=== PATIENT | male | born 1950 | race Caucasian/White ===

== ENCOUNTER → 2016-09-25 | Outpatient (CLI) | payer BC ==
[2016-09-25 13:10] LABS: BASO % 0.2 % (0.0-1.0); EOS # 0.1 10*3/uL (0.0-0.4); EOS % 2.2 % (1.0-4.0); HEMATOCRIT 35.1 % (42.0-52.0); LYMPH # 0.6 10*3/uL (1.3-4.4); LYMPH % 9.5 % (27.0-41.0); MEAN CELL VOLUME 96.4 fl (80.0-94.0); MEAN CORPUSCULAR HGB 30.2 pg (27.0-31.0); MEAN CORPUSCULAR HGB CONC 31.3 g/dl (33.0-37.0); MEAN PLATELET VOLUME 8.9 fl (9.6-12.3); MONO # 0.5 10*3/uL (0.1-1.0); MONO % 8.3 % (3.0-9.0); NEUT # 4.8 10*3/uL (2.3-7.9); NEUT % 79.1 % (47.0-73.0); PLATELET COUNT AUTOMATED 140 10*3/uL (130-400); RED BLOOD COUNT 3.64 10*6/uL (4.50-5.90); RED CELL DISTRI WIDTH 13.8 % (0-14.5)
[2016-09-25 13:34] LABS: MAGNESIUM 2.2 mg/dL (1.5-2.1); PHOSPHOROUS 2.6 mg/dL (2.5-4.9); POTASSIUM 4.6 mmol/L (3.5-5.1)
== END | disposition home or self-care (01) ==
LOC: LAB 12:52
PROVIDERS: Family Medicine
DX: I12.9 Hypertensive chronic kidney disease with stage 1 through stage 4 chronic kidney disease, or unspecified chronic kidney disease (principal); D59.0 Drug-induced autoimmune hemolytic anemia; N18.9 Chronic kidney disease, unspecified; E83.40 Disorders of magnesium metabolism, unspecified; E78.2 Mixed hyperlipidemia; T86.10 Unspecified complication of kidney transplant; Z79.899 Other long term (current) drug therapy; Z94.0 Kidney transplant status

== ENCOUNTER → 2016-11-01 | Outpatient (CLI) | payer BC | END | disposition home or self-care (01) | LOC: LAB 09:29 | PROVIDERS: Internal Medicine Nephrology | DX: E87.5 Hyperkalemia (principal); Z94.0 Kidney transplant status ==

== ENCOUNTER → 2016-11-11 | Outpatient (CLI) | payer BC ==
[2016-11-12 09:08] LABS: PSA % FREE 31.3 % (.)
== END | disposition home or self-care (01) ==
LOC: RAD 11-07 11:30 → LAB 10:53 → RAD 11:00
PROVIDERS: Internal Medicine
DX: Z13.820 Encounter for screening for osteoporosis (principal); Z12.5 Encounter for screening for malignant neoplasm of prostate; C43.9 Malignant melanoma of skin, unspecified; N18.9 Chronic kidney disease, unspecified; Z94.0 Kidney transplant status; Z79.52 Long term (current) use of systemic steroids

== ENCOUNTER → 2017-02-23 | Outpatient (CLI) | payer BC ==
[2017-02-23 08:19] LABS: CREATININE 2.77 mg/dL (0.70-1.30)
== END | disposition home or self-care (01) ==
LOC: LAB 07:52
PROVIDERS: Internal Medicine Nephrology
DX: T86.10 Unspecified complication of kidney transplant (principal); Z94.0 Kidney transplant status

== ENCOUNTER → 2017-02-27 | Outpatient (CLI) | payer BC ==
[2017-02-27 07:56] LABS: BASO % 0.2 % (0.0-1.0); EOS # 0.1 10*3/uL (0.0-0.4); HEMATOCRIT 34.9 % (42.0-52.0); HEMOGLOBIN 10.9 g/dl (14.0-18.0); LYMPH # 0.4 10*3/uL (1.3-4.4); LYMPH % 9.1 % (27.0-41.0); MEAN CELL VOLUME 95.6 fl (80.0-94.0); MEAN CORPUSCULAR HGB 29.9 pg (27.0-31.0); MEAN CORPUSCULAR HGB CONC 31.2 g/dl (33.0-37.0); MEAN PLATELET VOLUME 8.9 fl (9.6-12.3); MONO # 0.3 10*3/uL (0.1-1.0); MONO % 7.1 % (3.0-9.0); NEUT # 3.7 10*3/uL (2.3-7.9); NEUT % 78.7 % (47.0-73.0); PLATELET COUNT AUTOMATED 141 10*3/uL (130-400); RED BLOOD COUNT 3.65 10*6/uL (4.50-5.90); RED CELL DISTRI WIDTH 13.5 % (0-14.5); WHITE BLOOD COUNT 4.6 10*3/uL (4.8-10.8)
[2017-02-27 08:36] LABS: POTASSIUM 5.7 mmol/L (3.5-5.1)
[2017-02-27 08:38] LABS: CREATININE 2.56 mg/dL (0.70-1.30)
== END | disposition home or self-care (01) ==
LOC: LAB 07:19
PROVIDERS: Surgery
DX: I12.9 Hypertensive chronic kidney disease with stage 1 through stage 4 chronic kidney disease, or unspecified chronic kidney disease (principal); E10.22 Type 1 diabetes mellitus with diabetic chronic kidney disease; N18.9 Chronic kidney disease, unspecified; D50.9 Iron deficiency anemia, unspecified; B25.9 Cytomegaloviral disease, unspecified; E83.40 Disorders of magnesium metabolism, unspecified; E78.2 Mixed hyperlipidemia; T86.10 Unspecified complication of kidney transplant; Z79.899 Other long term (current) drug therapy; Z94.0 Kidney transplant status

== ENCOUNTER → 2017-03-04 | Outpatient (CLI) | payer BC ==
[2017-03-04 13:28] LABS: CREATININE 2.74 mg/dL (0.70-1.30)
== END | disposition home or self-care (01) ==
LOC: LAB 12:34
PROVIDERS: Surgery
DX: R79.89 Other specified abnormal findings of blood chemistry (principal); Z94.0 Kidney transplant status

== ENCOUNTER → 2017-05-21 | Outpatient (CLI) | payer BC ==
[2017-05-21 09:08] LABS: BASO % 0.5 % (0.0-1.0); EOS # 0.1 10*3/uL (0.0-0.4); EOS % 3.2 % (1.0-4.0); HEMATOCRIT 35.3 % (42.0-52.0); LYMPH # 0.5 10*3/uL (1.3-4.4); LYMPH % 11.9 % (27.0-41.0); MEAN CELL VOLUME 97.5 fl (80.0-94.0); MEAN CORPUSCULAR HGB 30.4 pg (27.0-31.0); MEAN CORPUSCULAR HGB CONC 31.2 g/dl (33.0-37.0); MEAN PLATELET VOLUME 8.9 fl (9.6-12.3); MONO # 0.5 10*3/uL (0.1-1.0); MONO % 11.6 % (3.0-9.0); NEUT # 2.9 10*3/uL (2.3-7.9); NEUT % 70.8 % (47.0-73.0); PLATELET COUNT AUTOMATED 124 10*3/uL (130-400); RED BLOOD COUNT 3.62 10*6/uL (4.50-5.90); RED CELL DISTRI WIDTH 13.3 % (0-14.5)
[2017-05-21 09:39] LABS: ALBUMIN 3.7 gm/dl (3.1-4.5); CREATININE 2.42 mg/dL (0.70-1.30); POTASSIUM 5.1 mmol/L (3.5-5.1); TOTAL PROTEIN 6.7 gm/dL (6.4-8.2); URIC ACID 7.9 mg/dL (3.5-7.2)
[2017-05-21 09:45] LABS: THYROID STIM HORMONE (HS) 7.93 uIU/ml (0.358-4.75)
== END | disposition home or self-care (01) ==
LOC: LAB 08:38
PROVIDERS: Surgery
DX: I12.9 Hypertensive chronic kidney disease with stage 1 through stage 4 chronic kidney disease, or unspecified chronic kidney disease (principal); N18.4 Chronic kidney disease, stage 4 (severe); E11.22 Type 2 diabetes mellitus with diabetic chronic kidney disease; D59.0 Drug-induced autoimmune hemolytic anemia; B25.9 Cytomegaloviral disease, unspecified; E83.40 Disorders of magnesium metabolism, unspecified; E78.2 Mixed hyperlipidemia; T86.10 Unspecified complication of kidney transplant; Z79.899 Other long term (current) drug therapy; Z94.0 Kidney transplant status

== ENCOUNTER → 2017-07-28 | Outpatient (CLI) | payer BC ==
[2017-07-28 08:41] LABS: BASO % 0.3 % (0.0-1.0); EOS # 0.1 10*3/uL (0.0-0.4); EOS % 1.7 % (1.0-4.0); HEMATOCRIT 36.3 % (42.0-52.0); HEMOGLOBIN 11.9 g/dl (14.0-18.0); LYMPH # 0.5 10*3/uL (1.3-4.4); LYMPH % 8.1 % (27.0-41.0); MEAN CELL VOLUME 92.8 fl (80.0-94.0); MEAN CORPUSCULAR HGB 30.4 pg (27.0-31.0); MEAN CORPUSCULAR HGB CONC 32.8 g/dl (33.0-37.0); MEAN PLATELET VOLUME 8.7 fl (9.6-12.3); MONO # 0.4 10*3/uL (0.1-1.0); MONO % 6.9 % (3.0-9.0); NEUT # 4.8 10*3/uL (2.3-7.9); PLATELET COUNT AUTOMATED 184 10*3/uL (130-400); RED BLOOD COUNT 3.91 10*6/uL (4.50-5.90); RED CELL DISTRI WIDTH 13.2 % (0-14.5); WHITE BLOOD COUNT 5.8 10*3/uL (4.8-10.8)
[2017-07-28 09:16] LABS: ALBUMIN 3.8 gm/dl (3.1-4.5); CREATININE 2.95 mg/dL (0.70-1.30); POTASSIUM 4.9 mmol/L (3.5-5.1); TOTAL PROTEIN 6.7 gm/dL (6.4-8.2)
== END | disposition home or self-care (01) ==
LOC: LAB 08:05
PROVIDERS: Internal Medicine
DX: R63.0 Anorexia (principal); R10.12 Left upper quadrant pain; Z96.0 Presence of urogenital implants

== ENCOUNTER → 2017-12-09 | Outpatient (CLI) | payer MEDICARE ==
[2017-12-09 14:39] LABS: BASO % 0.5 % (0.0-1.0); EOS # 0.2 10*3/uL (0.0-0.4); EOS % 3.7 % (1.0-4.0); HEMATOCRIT 36.4 % (42.0-52.0); HEMOGLOBIN 11.3 g/dl (14.0-18.0); LYMPH # 0.5 10*3/uL (1.3-4.4); LYMPH % 9.6 % (27.0-41.0); MEAN CELL VOLUME 98.9 fl (80.0-94.0); MEAN CORPUSCULAR HGB 30.7 pg (27.0-31.0); MEAN PLATELET VOLUME 8.6 fl (9.6-12.3); MONO # 0.5 10*3/uL (0.1-1.0); MONO % 8.2 % (3.0-9.0); NEUT # 4.3 10*3/uL (2.3-7.9); NEUT % 76.4 % (47.0-73.0); PLATELET COUNT AUTOMATED 136 10*3/uL (130-400); RED BLOOD COUNT 3.68 10*6/uL (4.50-5.90); RED CELL DISTRI WIDTH 13.5 % (0-14.5); WHITE BLOOD COUNT 5.6 10*3/uL (4.8-10.8)
[2017-12-09 15:05] LABS: ALBUMIN 3.9 gm/dl (3.1-4.5); CREATININE 3.05 mg/dL (0.70-1.30); PHOSPHOROUS 4.4 mg/dL (2.5-4.9); POTASSIUM 5.6 mmol/L (3.5-5.1); TOTAL PROTEIN 6.7 gm/dL (6.4-8.2)
== END | disposition home or self-care (01) ==
LOC: LAB 14:12
PROVIDERS: Internal Medicine Nephrology
DX: D64.9 Anemia, unspecified (principal); E83.42 Hypomagnesemia

== ENCOUNTER → 2017-12-17 | Outpatient (CLI) | payer MEDICARE ==
[2017-12-17 10:25] LABS: BASO % 0.4 % (0.0-1.0); EOS # 0.2 10*3/uL (0.0-0.4); EOS % 3.2 % (1.0-4.0); HEMATOCRIT 35.7 % (42.0-52.0); HEMOGLOBIN 11.1 g/dl (14.0-18.0); LYMPH # 0.6 10*3/uL (1.3-4.4); LYMPH % 10.8 % (27.0-41.0); MEAN CELL VOLUME 97.5 fl (80.0-94.0); MEAN CORPUSCULAR HGB 30.3 pg (27.0-31.0); MEAN CORPUSCULAR HGB CONC 31.1 g/dl (33.0-37.0); MEAN PLATELET VOLUME 8.7 fl (9.6-12.3); MONO # 0.5 10*3/uL (0.1-1.0); MONO % 9.2 % (3.0-9.0); NEUT # 4.3 10*3/uL (2.3-7.9); NEUT % 75.3 % (47.0-73.0); PLATELET COUNT AUTOMATED 131 10*3/uL (130-400); RED BLOOD COUNT 3.66 10*6/uL (4.50-5.90); RED CELL DISTRI WIDTH 13.4 % (0-14.5); WHITE BLOOD COUNT 5.7 10*3/uL (4.8-10.8)
[2017-12-17 10:59] LABS: ALBUMIN 3.9 gm/dl (3.1-4.5); CREATININE 2.51 mg/dL (0.70-1.30); PHOSPHOROUS 3.4 mg/dL (2.5-4.9); URIC ACID 7.8 mg/dL (3.5-7.2)
[2017-12-17 11:01] LABS: TOTAL PROTEIN 6.9 gm/dL (6.4-8.2)
[2017-12-17 13:10] LABS: POTASSIUM 6.1 mmol/L (3.5-5.1)
== END | disposition home or self-care (01) ==
LOC: LAB 09:51
PROVIDERS: Internal Medicine Nephrology
DX: D64.9 Anemia, unspecified (principal); E83.42 Hypomagnesemia; Z94.0 Kidney transplant status

== ENCOUNTER → 2017-12-21 | Outpatient (CLI) | payer MEDICARE ==
[2017-12-21 09:53] LABS: BASO % 0.5 % (0.0-1.0); EOS # 0.2 10*3/uL (0.0-0.4); EOS % 2.9 % (1.0-4.0); HEMATOCRIT 36.9 % (42.0-52.0); HEMOGLOBIN 11.3 g/dl (14.0-18.0); LYMPH # 0.6 10*3/uL (1.3-4.4); LYMPH % 10.8 % (27.0-41.0); MEAN CELL VOLUME 98.7 fl (80.0-94.0); MEAN CORPUSCULAR HGB 30.2 pg (27.0-31.0); MEAN CORPUSCULAR HGB CONC 30.6 g/dl (33.0-37.0); MEAN PLATELET VOLUME 9.3 fl (9.6-12.3); MONO # 0.6 10*3/uL (0.1-1.0); MONO % 9.7 % (3.0-9.0); NEUT # 4.4 10*3/uL (2.3-7.9); NEUT % 74.7 % (47.0-73.0); PLATELET COUNT AUTOMATED 143 10*3/uL (130-400); RED BLOOD COUNT 3.74 10*6/uL (4.50-5.90); RED CELL DISTRI WIDTH 13.7 % (0-14.5); WHITE BLOOD COUNT 5.9 10*3/uL (4.8-10.8)
[2017-12-21 10:21] LABS: CREATININE 2.51 mg/dL (0.70-1.30); PHOSPHOROUS 3.7 mg/dL (2.5-4.9); POTASSIUM 5.2 mmol/L (3.5-5.1); TOTAL PROTEIN 6.7 gm/dL (6.4-8.2); URIC ACID 9.1 mg/dL (3.5-7.2)
== END | disposition home or self-care (01) ==
LOC: LAB 08:26
PROVIDERS: Internal Medicine Nephrology
DX: D64.9 Anemia, unspecified (principal); E83.42 Hypomagnesemia; Z94.0 Kidney transplant status

== ENCOUNTER 2018-01-06 10:42 | Emergency (ER) | payer MEDICARE ==
[~2018-01-06] VITALS: Ht 177.8 cm; Wt 81.2 kg
== END 2018-01-06 11:27 | disposition home or self-care (01) ==
LOC: ED 10:42
DX: S05.02XA Injury of conjunctiva and corneal abrasion without foreign body, left eye, initial encounter (principal); Z94.0 Kidney transplant status; Z88.1 Allergy status to other antibiotic agents; X58.XXXA Exposure to other specified factors, initial encounter; Y93.89 Activity, other specified; Y92.69 Other specified industrial and construction area as the place of occurrence of the external cause; Y99.8 Other external cause status

== ENCOUNTER → 2018-04-16 | Outpatient (CLI) | payer MEDICARE ==
--- NOTE | ~2018-04-16 | EKG ---
[place], [place] ELECTROCARDIOGRAM REPORT NAME: KURTIS FIGUEROA UNIT #: [id number] ROOM: DOCTOR: JAROD DRAFT REPORT BIRTHDATE: [birth year] [facility] Test Date: 2018-04-16 Test Time: 14:39:32 Pat Name: KURTIS FIGUEROA Department: Room: Gender: Online Retailer: Rachel Mendoza : 1950 Requested By: JARRET FOLEY Order Number: [id number] Reading MD: Delisa Uriostegui MD Measurements Intervals [place] Rate: 79 P: 14 VT: 184 QRS: 8 QRSD: 84 T: 34 QT: 354 QTc: 406 Interpretive Statements Sinus rhythm LVH by voltage No previous ECG available for comparison Electronically Signed On 04-18-2018 15:24:37 PST by Delisa Uriostegui MD CM:EKGRPT:ELECTROCARDIOGRAM REPORT [id number] JARRET OLIVERA DRAFT REPORT JARRET FOLEY
[2018-04-16 15:02] LABS: BASO % 0.5 % (0.0-1.0); EOS # 0.3 10*3/uL (0.0-0.4); EOS % 4.8 % (1.0-4.0); HEMATOCRIT 38.6 % (42.0-52.0); HEMOGLOBIN 12.2 g/dl (14.0-18.0); LYMPH # 0.7 10*3/uL (1.3-4.4); LYMPH % 12.7 % (27.0-41.0); MEAN CELL VOLUME 97.2 fl (80.0-94.0); MEAN CORPUSCULAR HGB 30.7 pg (27.0-31.0); MEAN CORPUSCULAR HGB CONC 31.6 g/dl (33.0-37.0); MONO # 0.6 10*3/uL (0.1-1.0); MONO % 10.6 % (3.0-9.0); NEUT # 3.9 10*3/uL (2.3-7.9); NEUT % 69.8 % (47.0-73.0); PLATELET COUNT AUTOMATED 168 10*3/uL (130-400); RED BLOOD COUNT 3.97 10*6/uL (4.50-5.90); RED CELL DISTRI WIDTH 13.5 % (0-14.5); WHITE BLOOD COUNT 5.6 10*3/uL (4.8-10.8)
[2018-04-16 15:31] LABS: ALBUMIN 3.9 gm/dl (3.1-4.5); CREATININE 2.48 mg/dL (0.70-1.30); POTASSIUM 5.5 mmol/L (3.5-5.1); TOTAL PROTEIN 7.6 gm/dL (6.4-8.2)
== END | disposition home or self-care (01) ==
LOC: LAB 13:55
PROVIDERS: Physician Assistant; Urology
DX: Z01.818 Encounter for other preprocedural examination (principal); Z12.5 Encounter for screening for malignant neoplasm of prostate; E03.9 Hypothyroidism, unspecified; E11.9 Type 2 diabetes mellitus without complications; E78.2 Mixed hyperlipidemia; K21.9 Gastro-esophageal reflux disease without esophagitis; I10 Essential (primary) hypertension; N13.30 Unspecified hydronephrosis; T86.19 Other complication of kidney transplant

== ENCOUNTER → 2018-06-17 | Outpatient (CLI) | payer MEDICARE ==
[2018-06-17 15:12] LABS: CREATININE 3.16 mg/dL (0.70-1.30)
== END | disposition home or self-care (01) ==
PROVIDERS: Internal Medicine Nephrology
DX: E87.5 Hyperkalemia (principal)

== ENCOUNTER → 2018-12-02 | Outpatient (CLI) | payer MEDICARE ==
[2018-12-02 09:48] LABS: CREATININE 2.59 mg/dL (0.70-1.30); POTASSIUM 5.7 mmol/L (3.5-5.1)
== END | disposition home or self-care (01) ==
LOC: LAB 09:01
PROVIDERS: Internal Medicine Nephrology
DX: T86.10 Unspecified complication of kidney transplant (principal); E87.5 Hyperkalemia; D89.9 Disorder involving the immune mechanism, unspecified; Z94.0 Kidney transplant status

== ENCOUNTER → 2019-01-28 | Outpatient (CLI) | payer MEDICARE ==
[2019-01-28 15:25] LABS: CREATININE 2.99 mg/dL (0.70-1.30); POTASSIUM 5.8 mmol/L (3.5-5.1)
== END | disposition home or self-care (01) ==
LOC: LAB 14:24
PROVIDERS: Internal Medicine Nephrology
DX: N18.4 Chronic kidney disease, stage 4 (severe) (principal); E87.5 Hyperkalemia; E34.9 Endocrine disorder, unspecified; T86.10 Unspecified complication of kidney transplant; Z79.899 Other long term (current) drug therapy; Z94.0 Kidney transplant status

== ENCOUNTER → 2019-02-15 | Outpatient (CLI) | payer MEDICARE ==
[2019-02-15 15:20] LABS: CREATININE 2.93 mg/dL (0.70-1.30); POTASSIUM 4.8 mmol/L (3.5-5.1)
== END | disposition home or self-care (01) ==
LOC: LAB 14:23
PROVIDERS: Internal Medicine Nephrology
DX: E87.5 Hyperkalemia (principal); T86.10 Unspecified complication of kidney transplant; Z79.899 Other long term (current) drug therapy; Z94.0 Kidney transplant status

== ENCOUNTER → 2019-04-11 | Outpatient (CLI) | payer MEDICARE ==
[2019-04-11 09:12] LABS: BASO % 0.5 % (0.0-1.0); EOS # 0.3 10*3/uL (0.0-0.4); EOS % 8.6 % (1.0-4.0); HEMATOCRIT 31.7 % (42.0-52.0); LYMPH # 0.5 10*3/uL (1.3-4.4); LYMPH % 12.4 % (27.0-41.0); MEAN CORPUSCULAR HGB 29.3 pg (27.0-31.0); MEAN CORPUSCULAR HGB CONC 31.5 g/dl (33.0-37.0); MEAN PLATELET VOLUME 9.2 fl (9.6-12.3); MONO # 0.4 10*3/uL (0.1-1.0); MONO % 9.7 % (3.0-9.0); NEUT # 2.5 10*3/uL (2.3-7.9); NEUT % 67.7 % (47.0-73.0); PLATELET COUNT AUTOMATED 151 10*3/uL (130-400); RED BLOOD COUNT 3.41 10*6/uL (4.50-5.90); RED CELL DISTRI WIDTH 13.9 % (0-14.5); WHITE BLOOD COUNT 3.7 10*3/uL (4.8-10.8)
[2019-04-11 09:25] LABS: CREATININE 2.9 mg/dL (0.70-1.30); POTASSIUM 4.4 mmol/L (3.5-5.1)
== END | disposition home or self-care (01) ==
LOC: LAB 08:22
PROVIDERS: Urology
DX: N13.30 Unspecified hydronephrosis (principal)

== ENCOUNTER → 2019-06-21 | Outpatient (CLI) | payer MEDICARE ==
[2019-06-21 11:21] LABS: ACT PARTIAL THROMBO TIME 25.9 SECONDS (20.0-32.1)
[2019-06-21 11:22] LABS: HEMATOCRIT 30.2 % (42.0-52.0); HEMOGLOBIN 9.4 g/dl (14.0-18.0); MEAN CELL VOLUME 94.7 fl (80.0-94.0); MEAN CORPUSCULAR HGB 29.5 pg (27.0-31.0); MEAN CORPUSCULAR HGB CONC 31.1 g/dl (33.0-37.0); MEAN PLATELET VOLUME 8.7 fl (9.6-12.3); PLATELET COUNT AUTOMATED 172 10*3/uL (130-400); RED BLOOD COUNT 3.19 10*6/uL (4.50-5.90); RED CELL DISTRI WIDTH 14.6 % (0-14.5); WHITE BLOOD COUNT 4.6 10*3/uL (4.8-10.8)
[2019-06-21 11:42] LABS: ALBUMIN 3.1 gm/dl (3.1-4.5); CREATININE 4.09 mg/dL (0.70-1.30); PHOSPHOROUS 4.8 mg/dL (2.5-4.9); POTASSIUM 5.5 mmol/L (3.5-5.1); TOTAL PROTEIN 5.8 gm/dL (6.4-8.2)
[2019-06-21 11:47] LABS: OVALOCYTES FEW; PLATELET SUFFICIENCY NORMAL (NORMAL); TOTAL CELLS COUNTED 100 #CELLS
== END | disposition home or self-care (01) ==
LOC: LAB 10:45
PROVIDERS: Internal Medicine Nephrology
DX: T86.10 Unspecified complication of kidney transplant (principal); Z79.899 Other long term (current) drug therapy; Z94.0 Kidney transplant status

== ENCOUNTER 2019-06-29 12:04 | Emergency (ER) | payer MEDICARE ==
[~2019-06-29] VITALS: Ht 175.2 cm; Wt 93.9 kg
[2019-06-29 12:44] LABS: BASO % 0.3 % (0.0-1.0); EOS # 0.2 10*3/uL (0.0-0.4); EOS % 1.4 % (1.0-4.0); HEMATOCRIT 28.2 % (42.0-52.0); HEMOGLOBIN 8.8 g/dl (14.0-18.0); LYMPH % 9.8 % (27.0-41.0); MEAN CELL VOLUME 96.2 fl (80.0-94.0); MEAN CORPUSCULAR HGB CONC 31.2 g/dl (33.0-37.0); MEAN PLATELET VOLUME 9.3 fl (9.6-12.3); MONO # 0.6 10*3/uL (0.1-1.0); MONO % 6.1 % (3.0-9.0); NEUT # 8.6 10*3/uL (2.3-7.9); NEUT % 81.4 % (47.0-73.0); PLATELET COUNT AUTOMATED 185 10*3/uL (130-400); RED BLOOD COUNT 2.93 10*6/uL (4.50-5.90); RED CELL DISTRI WIDTH 15.2 % (0-14.5); WHITE BLOOD COUNT 10.5 10*3/uL (4.8-10.8)
[2019-06-29 12:55] LABS: ACT PARTIAL THROMBO TIME 20.9 SECONDS (20.0-32.1)
[2019-06-29 13:01] LABS: ALBUMIN 3.1 gm/dl (3.1-4.5); ALKALINE PHOSPHATASE 55 U/L (45-117); BUN 71 mg/dl (7-24); CHLORIDE 114 mmol/L (98-107); CREATININE 3.59 mg/dL (0.70-1.30); LIPASE 55 U/L (73-393); POTASSIUM 5.3 mmol/L (3.5-5.1); SGOT/AST 17 IU/L (3-35); SGPT/ALT 15 U/L (12-78); SODIUM 143 mmol/L (136-145); TOTAL PROTEIN 5.6 gm/dL (6.4-8.2)
[2019-06-29 13:04] LABS: TROPONIN I 0.508 ng/ml (<0.045)
== END 2019-06-29 16:53 | disposition short-term general hospital (02) ==
LOC: ED 12:04
PROVIDERS: Physician Assistant
DX: K92.2 Gastrointestinal hemorrhage, unspecified (principal); N18.9 Chronic kidney disease, unspecified; I12.9 Hypertensive chronic kidney disease with stage 1 through stage 4 chronic kidney disease, or unspecified chronic kidney disease; Z88.1 Allergy status to other antibiotic agents; Z94.0 Kidney transplant status; Z99.2 Dependence on renal dialysis

== ENCOUNTER → 2020-05-22 | Outpatient (CLI) | payer MEDICARE | END | disposition home or self-care (01) | LOC: LAB 13:44 | PROVIDERS: ATTEND Ophthalmology | DX: Z01.818 Encounter for other preprocedural examination (principal); N19 Unspecified kidney failure ==

== ENCOUNTER → 2020-05-30 | Outpatient (CLI) | payer MEDICARE | END | disposition home or self-care (01) | LOC: LAB 11:15 | PROVIDERS: ATTEND Ophthalmology | DX: N17.9 Acute kidney failure, unspecified (principal) ==

== ENCOUNTER → 2020-10-16 | Outpatient (CLI) | payer MEDICARE ==
[2020-10-16 12:03] LABS: ALBUMIN 3.7 gm/dl (3.1-4.5); CREATININE 2.64 mg/dL (0.70-1.30); POTASSIUM 3.5 mmol/L (3.5-5.1)
[2020-10-16 12:07] LABS: FREE T4 0.96 ng/dl (0.76-1.46)
[2020-10-16 12:14] LABS: THYROID STIM HORMONE (HS) 4.22 uIU/ml (0.358-4.75)
[2020-10-16 13:31] LABS: VITAMIN D, 25-HYDROXY 42.7 ng/mL (30-100)
== END | disposition home or self-care (01) ==
LOC: LAB 11:24
PROVIDERS: ATTEND Internal Medicine
DX: E11.65 Type 2 diabetes mellitus with hyperglycemia (principal); E03.9 Hypothyroidism, unspecified; D64.9 Anemia, unspecified; E55.9 Vitamin D deficiency, unspecified

== ENCOUNTER → 2020-10-17 | Outpatient (CLI) | payer MEDICARE ==
[2020-10-17 12:08] LABS: BILIRUBIN Negative (Negative); BLOOD 2+ (Negative); CLARITY Clear (Clear); COLOR Yellow (Yellow); GLUCOSE Negative (Negative); KETONE Negative (Negative); LEUKO ESTERASE 1+ (Negative); NITRITE Negative (Negative); PH 7.5 (4.5-8.0); SPECIFIC GRAVITY 1.015 (1.001-1.030); UROBILINOGEN 0.2 E.U./dl (0.0-1.0)
[2020-10-17 12:58] LABS: RBC 16-20 rbc/hpf (0-2); WBC TNTC wbc/hpf (0-5)
== END | disposition home or self-care (01) ==
LOC: LAB 11:33
PROVIDERS: ATTEND Internal Medicine
DX: E11.65 Type 2 diabetes mellitus with hyperglycemia (principal); D64.9 Anemia, unspecified; E03.9 Hypothyroidism, unspecified

== ENCOUNTER → 2021-01-31 | Outpatient (CLI) | payer MEDICARE | END | disposition home or self-care (01) | LOC: CP 08:02 | PROVIDERS: ATTEND Surgery Vascular Surgery | DX: I44.0 Atrioventricular block, first degree (principal); I51.7 Cardiomegaly; N18.6 End stage renal disease ==

== ENCOUNTER → 2021-04-11 | Outpatient (CLI) | payer MEDICARE ==
[2021-04-11 12:52] LABS: BILIRUBIN Negative (Negative); BLOOD 1+ (Negative); CLARITY Clear (Clear); COLOR Yellow (Yellow); GLUCOSE Negative (Negative); KETONE Negative (Negative); LEUKO ESTERASE Negative (Negative); NITRITE Negative (Negative); UROBILINOGEN 0.2 E.U./dl (0.0-1.0)
[2021-04-11 13:09] LABS: EPITHELIAL CELLS 0-2
[2021-04-11 13:27] LABS: VITAMIN D, 25-HYDROXY 54.9 ng/mL (30-100)
[2021-04-11 13:29] LABS: ALBUMIN 3.9 gm/dl (3.1-4.5); CREATININE 2.28 mg/dL (0.70-1.30); POTASSIUM 4.2 mmol/L (3.5-5.1); TOTAL PROTEIN 7.9 gm/dL (6.4-8.2)
[2021-04-11 13:36] LABS: FREE T4 0.92 ng/dl (0.76-1.46); THYROID STIM HORMONE (HS) 4.98 uIU/ml (0.358-4.75)
== END | disposition home or self-care (01) ==
LOC: LAB 11:46
PROVIDERS: ATTEND Internal Medicine
DX: E11.65 Type 2 diabetes mellitus with hyperglycemia (principal); D64.9 Anemia, unspecified; E55.9 Vitamin D deficiency, unspecified; E03.9 Hypothyroidism, unspecified

== ENCOUNTER → 2023-08-12 | Outpatient (CLI) | payer OTHER | END | disposition home or self-care (01) | LOC: CARD 08-06 13:00 | PROVIDERS: ATTEND Internal Medicine Cardiovascular Disease | DX: I08.0 Rheumatic disorders of both mitral and aortic valves (principal); R01.1 Cardiac murmur, unspecified ==

== ENCOUNTER 2023-11-21 13:49 | Inpatient (IN) | payer OTHER ==
[~2023-11-21] VITALS: Ht 177.8 cm; Wt 67.3 kg
[2023-11-21 14:03] VITALS: BP 137/87
[2023-11-21 14:12] LABS: BASO % 0.6 % (0.0-1.0); EOS # 0.2 10*3/uL (0.0-0.4); EOS % 2.8 % (1.0-4.0); HEMATOCRIT 27.3 % (42.0-52.0); LYMPH # 0.6 10*3/uL (1.3-4.4); LYMPH % 11.4 % (27.0-41.0); MEAN CELL VOLUME 103.8 fl (80.0-94.0); MEAN CORPUSCULAR HGB 33.1 pg (27.0-31.0); MEAN CORPUSCULAR HGB CONC 31.9 g/dl (33.0-37.0); MEAN PLATELET VOLUME 8.7 fl (9.6-12.3); MONO # 0.4 10*3/uL (0.1-1.0); MONO % 7.4 % (3.0-9.0); NEUT # 4.1 10*3/uL (2.3-7.9); NEUT % 77.2 % (47.0-73.0); PLATELET COUNT AUTOMATED 141 10*3/uL (130-400); RED BLOOD COUNT 2.63 10*6/uL (4.50-5.90); WHITE BLOOD COUNT 5.3 10*3/uL (4.8-10.8)
[2023-11-21 14:28] LABS: TOTAL PROTEIN 6.5 gm/dL (6.0-8.0)
[2023-11-21] MEDS ORDERED: AMLODIPINE BESY10 MG PO (14:28)
[2023-11-21] MEDS ORDERED: LEVOTHYROXINE50 MCG PO (14:30)
[2023-11-21] MEDS ORDERED: LEVOTHYROXINE75 MCG PO (14:30)
[2023-11-21] MEDS ORDERED: FEROSUL325 M1 PO (14:31)
[2023-11-21] MEDS ORDERED: MIRTAZAPINE15 M2 PO (14:32)
[2023-11-21] MEDS ORDERED: LOSARTAN POTAS100 M1 PO (14:32)
[2023-11-21] MEDS ORDERED: NORMODYNE,TRAN200 MG PO ×2 (14:33→18:03)
[2023-11-21] MEDS ORDERED: PANTOPRAZOLE SO40 MG PO (14:34)
[2023-11-21] MEDS ORDERED: VITAMIN D31250 MC1 PO (14:37)
[2023-11-21] MEDS ORDERED: BUMETANIDE2 MG PO (14:37)
[2023-11-21] MEDS ORDERED: CLONIDINE0.2 MG PO (14:38)
[2023-11-21] MEDS ORDERED: [UNRECOGNIZED DRUG - OTHER] IJ (14:44)
[2023-11-21] MEDS ORDERED: [UNRECOGNIZED DRUG - CODE] SC (14:46)
[2023-11-21] MEDS ORDERED: NATURE'S BLEND F1 MG PO (14:46)
[2023-11-21] MEDS ORDERED: PRAVASTATIN SOD20 MG PO (14:47)
[2023-11-21] MEDS ORDERED: HYDROXYZINE HYD50 MG PO (14:47)
[2023-11-21] MEDS ORDERED: PREDNISONE5 MG PO (14:47)
[2023-11-21] MEDS ORDERED: MIRALAX119 GM PO (14:48)
[2023-11-21] MEDS ORDERED: MINOXIDIL2.5 MG PO (14:49)
[2023-11-21] MEDS ORDERED: NOVOLOG100 UNIT/1 SC (14:49)
[2023-11-21] MEDS ORDERED: AZITHROMYCIN500 M2 PO (14:50)
[2023-11-21] MEDS ORDERED: CALCIUM GLUCONATE 1 GM/10 ML VIAL IV ONE (15:10)
[2023-11-21 15:17] VITALS: BP 176/111
[2023-11-21] MEDS ORDERED: DEXTROSE 50% 25 GM/50 ML SYR IV ONE (15:20)
[2023-11-21] MEDS ORDERED: INSULIN REGULAR, HUMAN 1 UNIT/0.01 ML IV ONE (15:20)
[2023-11-21 15:23] LABS: ABG BASE EXCESS -1.9 mmol/L (-2.0-2.0); ARTERIAL BLOOD GAS PH 7.313 (7.35-7.45)
[2023-11-21 15:37] VITALS: BP 154/104
[2023-11-21] MEDS ORDERED: Ondansetron Hydrochloride 4 MG/2 ML VIAL IV PRN (16:15)
[2023-11-21] MEDS ORDERED: MORPHINE Sulfate 2 MG/ML SYR IV PRN (16:15)
[2023-11-21 16:45] VITALS: BP 136/85
[2023-11-21] MEDS ORDERED: MEMANTINE HCL10 MG PO (18:01)
[2023-11-21] MEDS ORDERED: RENA-VITE1 TAB PO (18:04)
[2023-11-21] MEDS ORDERED: ROSUVASTATIN CA20 MG PO (18:05)
[2023-11-21] MEDS ORDERED: RENVELA800 MG PO (18:06)
[2023-11-21] MEDS ORDERED: SODIUM CHLORIDE 0.9% 1,000 ML IV SCH (18:45)
[2023-11-21] MEDS ORDERED: MANNITOL 12.5 GM/50 ML VIAL IV SCH (18:45)
[2023-11-21] MEDS ORDERED: SODIUM CHLORIDE 23.4% 120 MEQ/30 ML VIAL IV SCH (18:45)
[2023-11-21] MEDS ORDERED: HEPARIN SODIUM 5,000 UNIT/ML VIAL IV SCH (18:45)
[2023-11-21] MEDS ORDERED: ALBUMIN 25% 50 ML IV PRN (18:45)
[2023-11-21] MEDS ORDERED: HEPARIN SODIUM 10,000 UN/10 ML VIAL IV SCH (18:45)
[2023-11-21 18:56] LABS: BASO % 0.4 % (0.0-1.0); EOS # 0.2 10*3/uL (0.0-0.4); EOS % 2.2 % (1.0-4.0); HEMATOCRIT 25.6 % (42.0-52.0); LYMPH # 0.6 10*3/uL (1.3-4.4); LYMPH % 8.4 % (27.0-41.0); MEAN CELL VOLUME 103.6 fl (80.0-94.0); MEAN CORPUSCULAR HGB 32.8 pg (27.0-31.0); MEAN CORPUSCULAR HGB CONC 31.6 g/dl (33.0-37.0); MEAN PLATELET VOLUME 8.7 fl (9.6-12.3); MONO # 0.6 10*3/uL (0.1-1.0); MONO % 8.2 % (3.0-9.0); NEUT # 5.4 10*3/uL (2.3-7.9); NEUT % 80.2 % (47.0-73.0); PLATELET COUNT AUTOMATED 145 10*3/uL (130-400); RED BLOOD COUNT 2.47 10*6/uL (4.50-5.90); RED CELL DISTRI WIDTH 14.9 % (0-14.5); WHITE BLOOD COUNT 6.7 10*3/uL (4.8-10.8)
[2023-11-21 19:20] LABS: POTASSIUM 3.7 mmol/L (3.4-5.1)
[2023-11-21 20:00] VITALS: BP 114/91
[2023-11-21 21:30] VITALS: BP 125/93
[2023-11-21] MEDS ORDERED: Labetalol Hydrochloride 200 MG TAB PO SCH (22:00)
[2023-11-21] MEDS ORDERED: Sevelamer Hydrochloride 800 MG TAB PO SCH (22:00)
[2023-11-21] MEDS ORDERED: HEPARIN SODIUM 5,000 UNIT/ML VIAL SC SCH (22:00)
[2023-11-21] MEDS ORDERED: Memantine Hydrochloride 10 MG TAB PO SCH (22:00)
[2023-11-21] MEDS ORDERED: Mirtazapine 15 MG TAB PO SCH (22:00)
[2023-11-22] VITALS: BP 117/47
[2023-11-22] MEDS ORDERED: GUAIFENESIN 10 ML UDC PO PRN (00:50)
[2023-11-22 04:00] VITALS: BP 121/77
[2023-11-22 05:56] LABS: FREE T4 1.06 ng/dl (0.89-1.76); POTASSIUM 4.6 mmol/L (3.4-5.1)
[2023-11-22 06:08] LABS: BASO % 0.5 % (0.0-1.0); EOS # 0.1 10*3/uL (0.0-0.4); EOS % 2.1 % (1.0-4.0); HEMATOCRIT 24.6 % (42.0-52.0); LYMPH # 0.5 10*3/uL (1.3-4.4); LYMPH % 12.1 % (27.0-41.0); MEAN CELL VOLUME 104.2 fl (80.0-94.0); MEAN CORPUSCULAR HGB 32.6 pg (27.0-31.0); MEAN CORPUSCULAR HGB CONC 31.3 g/dl (33.0-37.0); MEAN PLATELET VOLUME 9.2 fl (9.6-12.3); MONO # 0.4 10*3/uL (0.1-1.0); NEUT # 3.3 10*3/uL (2.3-7.9); NEUT % 74.8 % (47.0-73.0); PLATELET COUNT AUTOMATED 141 10*3/uL (130-400); RED BLOOD COUNT 2.36 10*6/uL (4.50-5.90); RED CELL DISTRI WIDTH 15.4 % (0-14.5); WHITE BLOOD COUNT 4.4 10*3/uL (4.8-10.8)
[2023-11-22] MEDS ORDERED: Levothyroxine Sodium 50 MCG TAB PO SCH (07:30)
[2023-11-22 08:00] VITALS: BP 127/71
[2023-11-22 09:10] LABS: VITAMIN D, 25-HYDROXY 107.5 ng/mL (30-100)
[2023-11-22] MEDS ORDERED: GUAIFENESIN 600 MG TAB ER PO SCH (10:00)
[2023-11-22] MEDS ORDERED: Pantoprazole Sodium 40 MG TAB PO SCH (10:00)
[2023-11-22] MEDS ORDERED: ATORVASTATIN CALCIUM 80 MG TAB PO SCH (10:00)
[2023-11-22] MEDS ORDERED: SODIUM CHLORIDE 0.9% 1,000 ML BAG IV ONE (10:08)
[2023-11-22 11:50] VITALS: BP 133/76
[2023-11-22 16:00] VITALS: BP 129/81
[2023-11-22] MEDS ORDERED: Sevelamer Hydrochloride 800 MG TAB PO SCH (16:00)
[2023-11-22 20:00] VITALS: BP 131/79
[2023-11-23] VITALS: BP 126/75
[2023-11-23 04:00] VITALS: BP 125/69
[2023-11-23 06:00] LABS: POTASSIUM 5.4 mmol/L (3.4-5.1)
[2023-11-23] MEDS ORDERED: Pantoprazole Sodium 40 MG TAB PO SCH (06:00)
[2023-11-23 06:29] LABS: BASO % 0.5 % (0.0-1.0); EOS # 0.1 10*3/uL (0.0-0.4); EOS % 2.1 % (1.0-4.0); HEMATOCRIT 24.5 % (42.0-52.0); LYMPH # 0.4 10*3/uL (1.3-4.4); LYMPH % 10.8 % (27.0-41.0); MEAN CELL VOLUME 105.2 fl (80.0-94.0); MEAN CORPUSCULAR HGB 32.6 pg (27.0-31.0); MEAN PLATELET VOLUME 9.4 fl (9.6-12.3); MONO # 0.5 10*3/uL (0.1-1.0); MONO % 12.4 % (3.0-9.0); NEUT # 2.8 10*3/uL (2.3-7.9); NEUT % 73.9 % (47.0-73.0); PLATELET COUNT AUTOMATED 133 10*3/uL (130-400); RED BLOOD COUNT 2.33 10*6/uL (4.50-5.90); RED CELL DISTRI WIDTH 15.1 % (0-14.5); WHITE BLOOD COUNT 3.8 10*3/uL (4.8-10.8)
[2023-11-23 08:00] VITALS: BP 121/72
[2023-11-23] MEDS ORDERED: FERROUS SULFATE 325 MG TAB PO SCH (10:00)
[2023-11-23] MEDS ORDERED: EPOETIN ALFA-EPBX 10,000 UNIT/ML VIAL SC SCH (10:00)
[2023-11-23 12:00] VITALS: BP 124/65
[2023-11-23 16:00] VITALS: BP 138/81
[2023-11-23 20:00] VITALS: BP 141/63
[2023-11-24] VITALS: BP 95/29
[2023-11-24 05:36] LABS: POTASSIUM 4.6 mmol/L (3.4-5.1)
[2023-11-24] MEDS ORDERED: Levothyroxine Sodium 75 MCG TAB PO SCH (06:00)
[2023-11-24 06:06] LABS: BASO % 0.2 % (0.0-1.0); EOS # 0.1 10*3/uL (0.0-0.4); EOS % 2.9 % (1.0-4.0); HEMATOCRIT 26.9 % (42.0-52.0); LYMPH # 0.6 10*3/uL (1.3-4.4); MEAN CELL VOLUME 106.7 fl (80.0-94.0); MEAN CORPUSCULAR HGB 32.9 pg (27.0-31.0); MEAN CORPUSCULAR HGB CONC 30.9 g/dl (33.0-37.0); MONO # 0.5 10*3/uL (0.1-1.0); NEUT # 2.7 10*3/uL (2.3-7.9); NEUT % 67.4 % (47.0-73.0); PLATELET COUNT AUTOMATED 148 10*3/uL (130-400); RED BLOOD COUNT 2.52 10*6/uL (4.50-5.90); RED CELL DISTRI WIDTH 14.9 % (0-14.5); WHITE BLOOD COUNT 4.1 10*3/uL (4.8-10.8)
[2023-11-24 08:00] VITALS: BP 125/87
[2023-11-24 12:00] VITALS: BP 162/91
[2023-11-24 16:00] VITALS: BP 128/84
[2023-11-24 20:00] VITALS: BP 129/78
[2023-11-25 06:15] LABS: BASO % 0.7 % (0.0-1.0); EOS # 0.1 10*3/uL (0.0-0.4); HEMATOCRIT 25.3 % (42.0-52.0); LYMPH # 0.6 10*3/uL (1.3-4.4); LYMPH % 20.1 % (27.0-41.0); MEAN CELL VOLUME 104.5 fl (80.0-94.0); MEAN CORPUSCULAR HGB 33.1 pg (27.0-31.0); MEAN CORPUSCULAR HGB CONC 31.6 g/dl (33.0-37.0); MEAN PLATELET VOLUME 9.3 fl (9.6-12.3); MONO # 0.4 10*3/uL (0.1-1.0); MONO % 14.1 % (3.0-9.0); NEUT # 1.8 10*3/uL (2.3-7.9); NEUT % 60.8 % (47.0-73.0); PLATELET COUNT AUTOMATED 135 10*3/uL (130-400); RED BLOOD COUNT 2.42 10*6/uL (4.50-5.90); RED CELL DISTRI WIDTH 14.6 % (0-14.5)
[2023-11-25 08:00] VITALS: BP 143/85
== END 2023-11-25 11:35 | disposition home health service (06) | DRG 640 ==
LOC: ED 13:49 → EDHOLD 15:43 → ICCU 15:43
PROVIDERS: Emergency Medicine; Internal Medicine; Internal Medicine Nephrology; Student in an Organized Health Care Education/Training Program; ADMIT Internal Medicine; ATTEND Internal Medicine
PROC: 5A09357 Assistance with Respiratory Ventilation, Less than 24 Consecutive Hours, Continuous Positive Airway Pressure (ICD-10-PCS; principal; 2023-11-21)
PROC: 5A1D70Z Performance of Urinary Filtration, Intermittent, Less than 6 Hours Per Day (ICD-10-PCS; 2023-11-21)
PROC: 5A1D70Z Performance of Urinary Filtration, Intermittent, Less than 6 Hours Per Day (ICD-10-PCS; 2023-11-23)
DX: E87.5 Hyperkalemia (principal); J96.02 Acute respiratory failure with hypercapnia; N18.6 End stage renal disease; D59.10 Autoimmune hemolytic anemia, unspecified; I38 Endocarditis, valve unspecified; I12.0 Hypertensive chronic kidney disease with stage 5 chronic kidney disease or end stage renal disease; Z94.0 Kidney transplant status; E87.1 Hypo-osmolality and hyponatremia; R73.9 Hyperglycemia, unspecified; D53.9 Nutritional anemia, unspecified; E87.70 Fluid overload, unspecified; F03.90 Unspecified dementia, unspecified severity, without behavioral disturbance, psychotic disturbance, mood disturbance, and anxiety; E78.5 Hyperlipidemia, unspecified; Z90.49 Acquired absence of other specified parts of digestive tract; Z99.2 Dependence on renal dialysis; Z80.0 Family history of malignant neoplasm of digestive organs; Z82.49 Family history of ischemic heart disease and other diseases of the circulatory system; Z88.1 Allergy status to other antibiotic agents; Z79.899 Other long term (current) drug therapy